=== PATIENT | male | born 1955 | race African-American/Black ===

== ENCOUNTER 2018-11-12 11:08 | Emergency (ER) | payer OTHER ==
[~2018-11-12] VITALS: Ht 167.6 cm; Wt 107.0 kg
[2018-11-12 14:17] VITALS: BP 136/81
== END 2018-11-12 14:18 | disposition home or self-care (01) ==
LOC: ER 11:08
DX: S00.03XA Contusion of scalp, initial encounter (principal); S10.93XA Contusion of unspecified part of neck, initial encounter; S00.83XA Contusion of other part of head, initial encounter; M54.5 Low back pain; E78.00 Pure hypercholesterolemia, unspecified; I10 Essential (primary) hypertension; F17.210 Nicotine dependence, cigarettes, uncomplicated; Y08.89XA Assault by other specified means, initial encounter; Y93.89 Activity, other specified; Y92.89 Other specified places as the place of occurrence of the external cause; Y99.8 Other external cause status
CPT/HCPCS: 70486; 72100; 99284

== ENCOUNTER 2021-02-24 19:27 | Inpatient (IN) | payer BC, MEDICARE, OTHER ==
[~2021-02-24] VITALS: Ht 167.6 cm; Wt 87.2 kg
[~2021-02-24 19:27] MED LIST: AMLO5TAB4 MT; ATOR40TA70 MT
[2021-02-24] MEDS ORDERED: SODIUM CHLORIDE 0.9% 1,000 ML IV ONE (20:15)
[2021-02-24] MEDS ORDERED: MECLIZINE 25MG TABLET PO ONE (20:15)
[2021-02-24 20:27] LABS: HEMATOCRIT. 34.6 % (42.0-52.0); HEMOGLOBIN. 11.6 g/dL (14.0-18.0); MEAN CORPUSCULAR HEMOGLOBIN 29.2 pg (28.0-32.0); MEAN CORPUSCULAR VOLUME 87.3 fL (80.0-94.0); MEAN PLATELET VOLUME 6.9 fl (7.4-10.4); PLATELET 179 x1000/uL (130-400); RED BLOOD CELL COUNT 3.97 mill/uL (4.7-6.1); RED CELL DISTRIBUTION WIDTH 17.2 % (11.6-14.6)
[2021-02-24 20:35] LABS: CHLORIDE 106 mEq/L (98-107)
[2021-02-24 20:56] LABS: PLATELET ESTIMATE NORMAL
[2021-02-24] MEDS ORDERED: TAMSULOSIN HCL 0.4MG SR CAPSULE PO ONE (23:15)
[2021-02-24] MEDS ORDERED: DIAZEPAM 2 MG TABLET PO ONE (23:45)
[2021-02-25] MEDS ORDERED: GUAIFENESIN 200MG/10ML SUGAR FREE UDC PO PRN (03:45)
[2021-02-25] MEDS ORDERED: CLONIDINE 0.1MG TABLET PO PRN (03:45)
[2021-02-25] MEDS ORDERED: ONDANSETRON HCL 4MG/2ML INJ IV PRN (03:45)
[2021-02-25] MEDS ORDERED: DOCUSATE SODIUM 100MG CAPSULE PO PRN (03:45)
[2021-02-25] MEDS ORDERED: MAGNESIUM/ALUMINUM HYDROXIDE/SIMETHICONE 30ML UDC PO PRN (03:45)
[2021-02-25] MEDS ORDERED: ACETAMINOPHEN 325MG TABLET PO PRN (03:45)
[2021-02-25] MEDS ORDERED: NALOXONE HCL 0.4MG/ML VIAL IV PRN (04:15)
[2021-02-25 05:35] VITALS: BP 154/86
[2021-02-25 05:43] VITALS: BP 154/86
[2021-02-25] MEDS ORDERED: PANT40TA51 PO (06:49)
[2021-02-25] MEDS ORDERED: FOLI-43 PO (06:49)
[2021-02-25] MEDS ORDERED: TAMS-11 PO (06:49)
[2021-02-25] MEDS ORDERED: AMLO5TAB88 PO (06:49)
[2021-02-25] MEDS ORDERED: AMLO10TA80 PO (06:49)
[2021-02-25 08:00] VITALS: BP 133/70
[2021-02-25] MEDS ORDERED: *PATIENT'S OWN MEDICATION STORAGE XX SCH (09:00)
[2021-02-25] MEDS: ENOXAPARIN 40MG/0.4ML SYR SUBCUT SCH (09:11)
[2021-02-25] MEDS: ASPIRIN 81MG EC TABLET PO SCH (09:11)
[2021-02-25] MEDS: AMLODIPINE 10MG TABLET PO SCH (09:11)
[2021-02-25] MEDS: MECLIZINE 25MG TABLET PO PRN ×2 (10:54→19:26)
[2021-02-25 12:13] VITALS: BP 138/61
[2021-02-25] MEDS: CHLORDIAZEPOXIDE 5 MG CAPSULE PO SCH ×2 (13:10→22:10)
[2021-02-25 15:48] VITALS: BP 135/60
[2021-02-25 20:34] VITALS: BP 147/86
[2021-02-26] VITALS: BP 143/82
[2021-02-26] MEDS: HYDROCODONE/ACETAMINOPHEN 5/325MG TABLET PO PRN ×2 (00:55→06:40)
[2021-02-26 03:57] VITALS: BP 140/74
[2021-02-26] MEDS: MECLIZINE 25MG TABLET PO PRN (04:13)
[2021-02-26] MEDS: CHLORDIAZEPOXIDE 5 MG CAPSULE PO SCH (05:31)
[2021-02-26 06:18] LABS: BASOPHILS % 0.6 % (0.0-2.0); HEMATOCRIT. 34.3 % (42.0-52.0); HEMOGLOBIN. 11.6 g/dL (14.0-18.0); LYMPHOCYTES % 34.9 % (20.0-50.0); MEAN CORPUSCULAR HEMOGLOBIN 29.7 pg (28.0-32.0); MEAN CORPUSCULAR VOLUME 87.8 fL (80.0-94.0); MEAN PLATELET VOLUME 7.6 fl (7.4-10.4); MONOCYTES % 12.8 % (2.0-8.0); NEUTROPHILS % 48.7 % (40.0-76.0); PLATELET 176 x1000/uL (130-400); RED CELL DISTRIBUTION WIDTH 16.8 % (11.6-14.6)
[2021-02-26 06:21] LABS: CHLORIDE 105 mEq/L (98-107)
[2021-02-26 06:33] LABS: HDL CHOLESTEROL 129 mg/dL (40-59); T4 FREE 0.77 ng/dL (0.76-1.46)
[2021-02-26 06:38] LABS: LDL CHOLESTEROL 59 mg/dL (5-100)
[2021-02-26] MEDS ORDERED: OXYC-580 MT (06:43)
[2021-02-26] MEDS ORDERED: POTASSIUM CHLORIDE 20MEQ TABLET SR PO SCH (07:00)
[2021-02-26 08:00] VITALS: BP 143/80
[2021-02-26] MEDS: ENOXAPARIN 40MG/0.4ML SYR SUBCUT SCH (09:08)
[2021-02-26] MEDS: AMLODIPINE 10MG TABLET PO SCH (09:08)
[2021-02-26] MEDS: ASPIRIN 81MG EC TABLET PO SCH (09:08)
[2021-02-26 09:39] VITALS: BP 140/74
== END 2021-02-26 10:55 | disposition home or self-care (01) | DRG 74 ==
LOC: ER 19:27 → ENRESERV 02-25 04:24 → 7WST 02-25 04:53 → 6WST 02-25 11:02
PROVIDERS: ADMIT Hospitalist; ATTEND Hospitalist
DX: G90.8 Other disorders of autonomic nervous system (principal); F10.139 Alcohol abuse with withdrawal, unspecified; E78.00 Pure hypercholesterolemia, unspecified; I10 Essential (primary) hypertension; I16.0 Hypertensive urgency; R79.89 Other specified abnormal findings of blood chemistry; D72.819 Decreased white blood cell count, unspecified; R91.8 Other nonspecific abnormal finding of lung field; Z20.822 Contact with and (suspected) exposure to COVID-19; F17.200 Nicotine dependence, unspecified, uncomplicated; E78.5 Hyperlipidemia, unspecified; Y90.9 Presence of alcohol in blood, level not specified; Z79.899 Other long term (current) drug therapy
CPT/HCPCS: 36415; 71045; 80053; 80061; 83880; 84439; 84443; 84484; 85025; 93005; 93306; 93970; 99285; J1650; J7030; J8597; U0003; U0005

== ENCOUNTER 2022-05-29 09:26 | Inpatient (IN) | payer BC ==
[~2022-05-29] VITALS: Ht 170.2 cm; Wt 100.0 kg
[~2022-05-29 09:26] MED LIST changes: +AMLO10TA80 PO; +AMLO5TAB88 PO; +FOLI-43 PO; +OXYC-580 MT; +PANT40TA51 PO; +TAMS-11 PO
[2022-05-29] MEDS ORDERED: SODIUM CHLORIDE 0.9% 1000ML BAG (SEPSIS BOLUS) IV ONE (10:45)
[2022-05-29] MEDS: ACETAMINOPHEN 325MG TABLET PO ONE (10:45)
[2022-05-29] MEDS ORDERED: CEFTRIAXONE 1 G PREMIX 50 ML IV ONE (11:30)
[2022-05-29 12:58] LABS: HEMATOCRIT. 32.6 % (42.0-52.0); HEMOGLOBIN. 10.8 g/dL (14.0-18.0); MEAN CORPUSCULAR HEMOGLOBIN 29.7 pg (28.0-32.0); MEAN CORPUSCULAR VOLUME 89.3 fL (80.0-94.0); MEAN PLATELET VOLUME 7.7 fl (7.4-10.4); PLATELET 224 x1000/uL (130-400); RED BLOOD CELL COUNT 3.65 mill/uL (4.7-6.1); RED CELL DISTRIBUTION WIDTH 16.8 % (11.6-14.6)
[2022-05-29 13:21] LABS: PLATELET ESTIMATE NORMAL
[2022-05-29 13:22] LABS: CHLORIDE 101 mEq/L (98-107)
[2022-05-29 14:18] LABS: CLARITY URINE CLEAR (CLEAR); COLOR URINE YELLOW (YELLOW); KETONES URINE TRACE (NEGATIVE); LEUKOCYTE ESTERASE URINE NEGATIVE (NEGATIVE); NITRITE URINE NEGATIVE (NEGATIVE); OCCULT BLOOD URINE NEGATIVE (NEGATIVE); PH URINE >=9.0 (4.5-8.0); PROTEIN URINE 1+ (NEGATIVE); SPECIFIC GRAVITY URINE 1.018 (1.005-1.030)
[2022-05-29] MEDS ORDERED: IOHEXOL-300 100 ML BOTTLE ONE (15:05)
[2022-05-29] MEDS ORDERED: METRONIDAZOLE 500 MG PREMIX 100 ML IV NR (15:30)
[2022-05-29] MEDS: DEXT 5%/0.9% NACL 1,000 ML IV SCH (17:15)
[2022-05-30 10:30] LABS: BASOPHILS % 0.6 % (0.0-2.0); HEMATOCRIT. 34.9 % (42.0-52.0); HEMOGLOBIN. 11.4 g/dL (14.0-18.0); LYMPHOCYTES % 13.3 % (20.0-50.0); MEAN CORPUSCULAR HEMOGLOBIN 29.5 pg (28.0-32.0); MEAN CORPUSCULAR VOLUME 90.4 fL (80.0-94.0); MEAN PLATELET VOLUME 8.2 fl (7.4-10.4); MONOCYTES % 12.9 % (2.0-8.0); NEUTROPHILS % 73.2 % (40.0-76.0); PLATELET 182 x1000/uL (130-400); RED BLOOD CELL COUNT 3.86 mill/uL (4.7-6.1); RED CELL DISTRIBUTION WIDTH 16.7 % (11.6-14.6)
[2022-05-30 10:39] LABS: CHLORIDE 101 mEq/L (98-107)
[2022-05-30] MEDS: DEXT 5%/0.9% NACL 1,000 ML IV SCH ×2 (11:26→13:15)
[2022-05-30] MEDS ORDERED: MORPHINE SULFATE 2 MG/ML CPJ (NOT FOR IM USE) IV PRN (12:00)
[2022-05-30] MEDS ORDERED: ACETAMINOPHEN 325MG TABLET PO PRN (13:15)
[2022-05-30] MEDS ORDERED: ONDANSETRON HCL 4MG/2ML INJ IV PRN (13:15)
[2022-05-30] MEDS ORDERED: DOCUSATE SODIUM 100MG CAPSULE PO PRN (13:15)
[2022-05-30] MEDS ORDERED: TRAMADOL 50MG TABLET PO PRN (13:15)
[2022-05-30] MEDS ORDERED: MAGNESIUM/ALUMINUM HYDROXIDE/SIMETHICONE 30ML UDC PO PRN (13:15)
[2022-05-30] MEDS ORDERED: PANTOPRAZOLE SODIUM 40 MG/VIAL IV SCH (13:15)
[2022-05-30] MEDS ORDERED: DEXT 5%/0.45% NACL 1000ML 1,000 ML IV SCH (13:15)
[2022-05-30] MEDS ORDERED: NALOXONE HCL 0.4MG/ML VIAL IV PRN (13:30)
[2022-05-30 13:47] VITALS: BP 138/72
[2022-05-30] MEDS ORDERED: ENOXAPARIN 40MG/0.4ML SYR SUBCUT SCH (14:00)
[2022-05-31] MEDS ORDERED: AMLODIPINE 10MG TABLET PO SCH (09:00)
== END 2022-05-30 14:12 | disposition home or self-care (01) | DRG 444 ==
LOC: ER 09:26 → EDBEDREQTM 12:14 → EDBEDREQSVC 12:14 → MICUSO 15:53 → EDBEDREQ 15:57 → EDBEDREQTM 15:57 → EDBEDREQSVC 15:57 → ENRESERV 16:23 → CANRESERV 16:23
PROVIDERS: ADMIT Hospitalist; ATTEND Hospitalist
DX: K80.71 Calculus of gallbladder and bile duct without cholecystitis with obstruction (principal); K85.90 Acute pancreatitis without necrosis or infection, unspecified; K86.1 Other chronic pancreatitis; E78.00 Pure hypercholesterolemia, unspecified; I10 Essential (primary) hypertension; F10.10 Alcohol abuse, uncomplicated; F17.210 Nicotine dependence, cigarettes, uncomplicated; Z20.822 Contact with and (suspected) exposure to COVID-19; E78.5 Hyperlipidemia, unspecified; R74.01 Elevation of levels of liver transaminase levels; Z68.34 Body mass index [BMI] 34.0-34.9, adult; Z90.49 Acquired absence of other specified parts of digestive tract; Z79.899 Other long term (current) drug therapy; Z82.49 Family history of ischemic heart disease and other diseases of the circulatory system
CPT/HCPCS: 36415; 71045; 74177; 74181; 80048; 80053; 80076; 81003; 83605; 84145; 85025; 87426; 87804; 93005; 99291; C9113; C9803; J0696; J2270; J2405; J3490; J7030; Q9967